=== PATIENT | male | born 1980 | race Caucasian/White ===

== ENCOUNTER 2020-06-09 17:22 | Emergency (ER) | payer BC, SELFPAY ==
[2020-06-09 17:24] VITALS: BP 122/90; PULSE 115; RESP 20; TEMP 36.6; O2SAT 98
[2020-06-09] MEDS: diazePAM (*CRX) 5 MG TABLET PO (18:01)
[2020-06-09] MEDS: HYDROcodone/acetaminophen (*CRX) 7.5-325 MG TABLET 1 TAB PO (18:02)
--- NOTE | 2020-06-09 18:28 | ED.GENADULT ---
HPI - General Adult General Chief complaint: Unspecified Stated complaint: TOOTH PAIN Time Seen by Provider: 06/09/20 17:39 Source: patient and family Mode of arrival: ambulatory Limitations: no limitations History of Present Illness HPI narrative: Patient is a 39-year-old male who presents with left-sided facial swelling that has been present now for the last 2 days was unsure as to whether or not it may be a dental abscess with history of decay patient on arrival to emergency department notes aching pain for which she took ibuprofen with no improvement patient denies fever chills nausea vomiting URI symptoms or other complaints patient on arrival appears uncomfortable but in no distress Related Data Allergies Allergy/AdvReac Type Severity Reaction Status Date / Time No Known Allergies Allergy Verified 06/09/20 17:27 Review of Systems Review of Systems: All systems reviewed & are unremarkable except as noted in HPI and below PMFSH Social History Social History (Updated 06/09/20 @ 18:39 by Raymond Carlson PA-C) Smoking status: Never smoker Gender identity (if verbalized by the patient): Male Exam Narrative: Exam Narrative: GENERAL: Well-appearing, well-nourished, and in no acute distress. HEAD: Normocephalic, atraumatic. Slight swelling in the left cheek no erythema EYES: PERRLA and EOMI. ENT: Nares clear, no rhinorrhea or epistaxis small swollen tender area along the lateral left nare no cellulitic changes. mucous membranes moist. Oropharynx without tonsillar hypertrophy exudate or other lesions. Gross dental decay. Floor the mouth is soft uvula is midline no trismus or drooling. No space-occupying lesions noted CHEST: Clear to auscultation. No respiratory distress. No wheezes rales or rhonchi HEART: Regular rate and rhythm. No murmur heard. EXTREMITIES: Normal range of motion. No edema. SKIN: Warm, dry, no rash. NEURO: No focal deficits. Alert and oriented x3. PSYCH: Normal mood and affect. Course Course Emergency Course: Patient in the room aware of case findings treatment plan diagnosis agreeing to follow-up as directed or to return if symptoms worsen or concerns. Patient had I&D of the lesion in the nose which revealed blood no purulent drainage no drainable lesions in the oropharynx. . Patient will be treated as a dental abscess provided with reasons to return and felt appropriate for outpatient reevaluation. ABCs and vital signs intact and stable Vital Signs Vital signs: Vital Signs Temperature 97.8 F 06/09/20 17:24 Pulse Rate 115 H 06/09/20 17:24 Respiratory Rate 20 06/09/20 17:24 Blood Pressure 122/90 06/09/20 17:24 Pulse Oximetry 98 06/09/20 17:24 Temperature 97.8 F 06/09/20 17:24 Pulse Rate 115 H 06/09/20 17:24 Respiratory Rate 20 06/09/20 17:24 Blood Pressure 122/90 06/09/20 17:24 Pulse Oximetry 98 06/09/20 17:24 Procedures Other Procedure Procedure 1: Other Procedure: Single straight incision of the lesion in the nare no drainage other than a small amount of blood single straight incision with 18-gauge needle Medical Decision Making MDM Narrative Medical decision making narrative: Paitents pain and complaint coupled with physical findings are consistant with dentalgia. There are no focal signs of space occupying lesions that are compromising to the ariway. The floor of the mouth is soft with no signs of Ludwigs Angina. Patient is without trismus or drooling and able to swallow secreations. Patient is felt appropriate for discharge home with dental follow up. Vital Signs Vital Signs: Vital Signs Temperature 97.8 F 06/09/20 17:24 Pulse Rate 115 H 06/09/20 17:24 Respiratory Rate 06/09/20 17:24 Blood Pressure 122/90 06/09/20 17:24 Pulse Oximetry 98 06/09/20 17:24 Temperature 97.8 F 06/09/20 17:24 Pulse Rate 115 H 06/09/20 17:24 Respiratory Rate 20 06/09/20 17:24 Blood Pressure 122/90 06/09/20 17:24 Pulse Oximet
[2020-06-09 19:00] VITALS: BP 132/78; PULSE 78; RESP 18; O2SAT 99
== END 2020-06-09 19:02 | disposition home or self-care (01) ==
PROVIDERS: Emergency Provider Family Medicine; PCP Family Medicine
DX: K04.7 Periapical abscess without sinus (principal)
CPT/HCPCS: 41800; 96372; 99283; A9270

== ENCOUNTER 2024-09-12 21:14 | Emergency (ER) | payer BC, SELFPAY ==
--- NOTE | ~2024-09-12 | CT_ITS ---
CT OF right the tibia/fibula EXAMINATION: CT tibia/fibula RT wo con DATE: 09/12/2024 22:12 INDICATION: Calf injury, possible tear, fell from motor TECHNIQUE: Computed tomography (CT) of the right tibia/fibula was performed without intravenous contr ast. Automated exposure control and iterative reconstruction technique were employed. The dose-length product was 1841.23 mGy-cm. COMPARISON: None FINDINGS: Limitations: None Bones: Mild degenerative change at the knee and ankle. The included osseous structures are otherwise within normal limits. There are no erosive or destructive bony lesions. Soft Tissues:The soft tissues appear within normal limits. No evidence of mass or fluid collection. The internal ligamentous and meniscal structures of the knee appear to be intact. The major flexor an d extensors in the lower extremity appear to be intact. Fluid: No significant fluid within the knee or ankle joint capsules. IMPRESSION: Unremarkable CT right tibia/fibular findings. Reviewed, dictated and finalized at location K.
[2024-09-12 21:14] VITALS: BP 135/93; PULSE 99; RESP 18; TEMP 37.5; O2SAT 95
[2024-09-12] MEDS: KETOROLAC (*BKC) 60 MG/2 ML VIAL IM (21:48)
--- OUTSIDE RECORDS SUMMARY | 2024-09-12 22:09 | XMS_ITS | Referral Summary ---
Author Organization [address] lt Address [address] [place] [address] Care Team Providers Care Tire Assembler Name Role Phone No, Physician Primary Care Provider [phone] Encounters Date Type Department Care Team Description 09/12/2024 7:15 PM CDT Office Visit [facility] [place] [address] [place] [address] Nevaeh Magdaleno NP Right leg injury, initial encounter (Primary Dx) from Last 3 Months Allergies No known active allergies Medications No known medications Active Problems No known active problems Social History Tobacco Use Types Packs/Day Years Used Date Smoking Tobacco: Never Assessed Sex and Gender Information Value Date Recorded Sex Assigned at Not on file Legal Sex Male 7:09 PM CDT Gender Identity Not on file Sexual Orientation Not on file Last Filed Vital Signs Vital Sign Reading Time Taken Comments Blood Pressure 116/70 09/12/2024 7:23 PM CDT Pulse 88 09/12/2024 7:23 PM CDT Temperature 37.1 C (98.8 F) 09/12/2024 7:23 PM CDT Respiratory Rate 18 09/12/2024 7:23 PM CDT Oxygen Saturation 98% 09/12/2024 7:23 PM CDT Inhaled Oxygen Concentration - - Weight 122.5 kg (270 lb) 09/12/2024 7:23 PM CDT Height 190.5 cm (6' 3 ) 09/12/2024 7:23 PM CDT Body Mass Index 33.75 09/12/2024 7:23 PM CDT Plan of Treatment Not on file Care Teams Tire Assembler Relationship Specialty Start Date End Date No Physician PCP - General 09/12/24
--- OUTSIDE RECORDS SUMMARY | 2024-09-12 22:09 | XMS_ITS | Clinical Summary ---
Author Organization [address] lt Address [address] [place] [address] Care Team Providers Care Manufacturing Management Associate Name Role Phone No, Physician Primary Care Provider [phone] Allergies No known active allergies Medications No known medications Active Problems No known active problems Encounters Date Type Department Care Team Description 09/12/2024 7:15 PM CDT Office Visit [facility] at [place] [address] [place] [address] Nevaeh Magdaleno NP Right leg injury, initial encounter (Primary Dx) from Last 3 Months Social History Tobacco Use Types Packs/Day Years Used Date Smoking Tobacco: Never Assessed Sex and Gender Information Value Date Recorded Sex Assigned at Not on file Legal Sex Male 7:09 PM CDT Gender Identity Not on file Sexual Orientation Not on file Obstetrics History Last Filed Vital Signs Vital Sign Reading [...] 09/12/2024 7:23 PM CDT Plan of Treatment Health Maintenance Due Date Last Done Comments Depression Screening 1982 Hepatitis C Screening 1982 DTaP/Tdap/Td Vaccine (1 - Tdap) 1993 Varicella Vaccines (1 of 2 - 13+ 2-dose series) 07/18/1995 Hepatitis B Screening 2000 Regular Well Visit/Exam 18-64 2000 Influenza Vaccine (Season Ended) 2025 HPV Vaccines Aged Out No longer eligi ble based on patient's age to complete this topic Pneumococcal vaccine <65 Aged Out No longer eligible based on patient's age to complete this topic Care Teams Manufacturing Management Associate Relationship Specialty Start Date End Date No, Physician PCP - General 09/12/24
--- OUTSIDE RECORDS SUMMARY | 2024-09-12 22:09 | XMS_ITS | Encounter Summary ---
Author Organization [facility] Address [address] [place] [address] Care Team Providers Care Clinical Recruiter Name Role Phone No, Physician Primary Care Provider [phone] Reason for Visit * Reason Comments Leg Injury Leg injury to right leg, jumped off a mower at work and heard a pop, this happened about an hour ago, nothing otc Encounter Details Date Type Department Care Team (Late st Contact Info) Description 09/12/2024 7:15 PM CDT Office Visit [facility] [place] [address] [place] [id number] Nevaeh Magdaleno, [place] [address] [facility] [place] [address] Right leg injury, initial encounter (Primary Dx) Social History Tobacco Use Types Packs/Day Years Used Date Smoking Tobacco: Never Assessed Sex and Gender Information Value Date Recorded Sex Assigned at Not on file Legal Sex Male 7:09 PM CDT Gender Identity Not on file Sexual Orientation Not on file documented as of this encounter Last Filed Vital Signs Vital Sign Reading [...] Mass Index 33.75 09/12/2024 7:23 PM CDT documented in this encounter Plan of Treatment Not on file documented as of this encounter Visit Diagnoses Diagnosis Right leg injury, initial encounter- Primary documented in this encounter Care Teams Clinical Recruiter Relationship Specialty Start Date End Date No, Physician PCP - General 09/12/24 documented as of this encounter
--- NOTE | 2024-09-12 22:40 | ED.LOWEXIN ---
HPI - Extremity Injury (Lower) General Chief Complaint: Extremity Injury, Lower Stated Complaint: muscle strain Time Seen by Provider: 09/12/24 21:17 Source: patient Mode of arrival: ambulatory Limitations: no limitations History of Present Illness HPI Narrative: patient is a 44-year-old male with a significant past medical history that presents today with a right calf injury. Patient said he stepped out of his lawnmower and stepped out of it just right and twisted his right calf and is very painful and he could barely walk and to the ER he was so painful. It is very tense as well. The tenseness with the pain his reason he could barely walking here. He had these wheelchair to get here. complaint: leg injury ( Right calf) Onset (ago): hour(s) Type of Injury: hyperextension Place: work Severity: moderate Severity scale (1-10): 4 Relieving factors: NSAID Exacerbating factors: weight bearing and movement Context: other ( step down wrong and twisted and hyper extended) Associated symptoms: snap/pop sensation Other symptoms: none Related Data Allergies Allergy/AdvReac Type Severity Reaction Status Date / Time No Known Allergies Allergy Verified 09/12/24 21:20 Review of Systems Review of Systems: All systems reviewed & are unremarkable except as noted in HPI and below Constitutional: Constitutional: Reports as per HPI Eyes: Eyes: Reports no additional eye complaints ENT: Reports system reviewed and no additional complaints, except as documented Cardiovascular: Cardiovascular: Reports no additional cardiovascular complaints Respiratory: Respiratory: Reports no additional respiratory complaints Gastrointestinal: Gastrointestinal: Reports no additional gastrointestinal complaints Genitourinary: Genitourinary: Reports no additional male genitourinary complaints Musculoskeletal: Musculoskeletal: Reports as per HPI and Reports muscle cramps Comments: right calf Integumentary/Breasts: Skin/Breast: Reports system reviewed and no additional complaints, except as docu Neurologic: Reports system reviewed and no additional complaints, except as documented Psychiatric: Psychiatric: Reports no additional psychiatric complaints Endocrine: Endocrine: Reports no additional endocrine complaints Hematologic/Lymphatic: Hematologic/Lymphatic: Reports no additional hematologic/lymphatic complaints Allergic/Immunologic: Allergic/Immunologic: Reports no additional allergic/immunologic complaints PMFSH Social History Social History Smoking status: Never smoker Gender identity (if verbalized by the patient): Male Exam Const: General: healthy appearing Nutritional Appearance: well nourished Orientation/consciousness: patient oriented x3 HENMT: Head: normal to inspection Ears: external ears normal Face/Nose/Sinus: Normal external nose present Face and sinus: normal facial exam Eyes: Conjunctivae: conjunctivae normal Pupils: Equal, round and reactive pupils present EOM: EOMs intact bilaterally Neck: Neck: normal visual inspection Chest: Chest palpation & inspection: normal inspection of the chest Resp: Effort & Inspection: normal respiratory effort Auscultation: clear to auscultation bilaterally Cardio: Rate: regular rate Rhythm: regular rhythm GI: GI Palp: Yes Soft to palpation Back/Spine/Pelvis: Back: no CVA tenderness Skin: General skin exam: normal color Rashes: no rashes Wounds: no wounds Neuro: General: patient oriented x3 Cranial nerves: Yes Nystagmus not present Speech: normal speech Extrem: General: normal to inspection and edema ( edema on right calf) Psych: Mental Status: mental status grossly normal Affect: normal affect Attitude: cooperative Course Vital Signs Vital signs: Vital Signs Temperature 99.5 F 09/12/24 21:14 Pulse Rate 99 09/12/24 21:14 Respiratory Rate 18 09/12/24 21:14 Blood Pressure 135/93 H 09/12/24 21:14 Pulse Oximetry 95 09/12/24 21:14 Oxygen Delivery Room Air 09/12/24 21:14 Temperature 99.5 F 09/12/24 21:14 Pulse Rate 99 09/12/24 21:14 Respiratory Rate 18 09/12/24 21:14 Blood Pressure 135/93 H 09/12/24 21:14 Pulse Oximetry 95 09/12/24 21:14 Oxygen Delivery Room Air 09/12/24 21:14 MDM - Extremity Injury (Lower) MDM Narrative Medical decision making narrative: patient most likely just has a very bad muscle strain to the right calf way he is describing the mechanism of injury and there was no fall and there is no dried blow to the site either. Will do a CT scan of the right calf to ensure that there are no torn ligaments or torn muscles. We used Toradol for the pain and swelling and give him baclofen for the muscle relaxant. CT came back negative for any acute findings. He feels slightly better after the Toradol and baclofen. Differential Diagnosis Differential diagnosis: Likely other ( Calf strain) Medical Records Attestation: I reviewed the patient's medical records. Lab Data Attestation: I reviewed the patient's lab results. Imaging Data Attestation: I personally reviewed and interpreted this imaging study as follows: Discharge Plan Discharge Clinical Impression: Strain of calf muscle, Calf swelling Patient Disposition: Home Condition: Stable Instructions: Leg Cramps (ED) Patient Language: Azerbaijani Prescriptions: New baclofen 10 mg tablet 10 mg PO BID PRN (Reason: muscle spasm) Qty: 20 0RF Follow-up/Referrals: Maksim Hamilton MD [Primary Care Provider] - Stand Alone Forms: Work/School Release IP Time of Disposition: 22:57
[2024-09-12] MEDS: BACLOFEN 10 MG TABLET PO (22:42)
[2024-09-12 22:49] VITALS: BP 143/74; PULSE 89; RESP 18; TEMP 37.6; O2SAT 96
== END 2024-09-12 23:03 | disposition home or self-care (01) ==
PROVIDERS: Emergency Provider Family Medicine; PCP Internal Medicine
DX: S86.811A Strain of other muscle(s) and tendon(s) at lower leg level, right leg, initial encounter (principal); X50.0XXA Overexertion from strenuous movement or load, initial encounter
CPT/HCPCS: 73700; 96372; 99284; A9270; J1885